=== PATIENT | female | born 1990 | race Caucasian/White ===

== ENCOUNTER 2022-12-23 00:59 | Inpatient (IN) | payer BC ==
[~2022-12-23 00:59] MED LIST: Lactated Ringers 1,000 ML IV SCH; Sodium Chloride 0.9% 10 ML Syringe FLUSH PRN; Sodium Chloride 0.9% 10 ML Syringe FLUSH SCH
[2022-12-23] MEDS ORDERED: Oxytocin/Lactated Ringers 10 UNIT/1,000 ML BAG IV SCH (05:00)
[2022-12-23] MEDS ORDERED: ceFAZolin 2 GM in Sodium Chloride 0.9% 50 ML IV PRN (05:00)
[2022-12-23] MEDS ORDERED: Citric Acid/Sodium Citrate Solution 30 ML Cup PO ONE (05:37)
[2022-12-23] MEDS ORDERED: Metoclopramide 10 MG/2 ML SDV IVPUSH ONE (05:37)
[2022-12-23] MEDS ORDERED: Lactated Ringers 1,000 ML IV SCH (05:45)
[2022-12-23] MEDS: Lactated Ringers 1,000 ML IV SCH ×2 (05:57→06:54)
[2022-12-23 05:58] LABS: BASOPHILS ABSOLUTE AUTO 0.04 K/mm3 (0.01-0.08); BASOPHILS PERCENT AUTO 0.4 % (0.1-1.2); EOSINOPHILS ABSOLUTE AUTO 0.05 K/mm3 (0.04-0.36); EOSINOPHILS PERCENT AUTO 0.5 (0.7-5.8); HEMATOCRIT 37.3 % (34.1-44.9); HEMOGLOBIN 12.9 gm/dl (11.2-15.7); IMMATURE GRAN ABSOLUTE AUTO 0.16 K/mm3 (0.00-0.10); IMMATURE GRAN PERCENT AUTO 1.6 % (<=1.0); LYMPHOCYTES ABSOLUTE AUTO 3.57 K/mm3 (1.18-3.74); LYMPHOCYTES PERCENT AUTO 36.5 % (19.3-51.7); MEAN CORPUSCULAR HEMOGLOBIN 32.8 pg (25.6-32.2); MEAN CORPUSCULAR HGB CONC 34.6 g/dl (32.2-35.5); MEAN CORPUSCULAR VOLUME 94.9 fl (79.4-94.8); MONOCYTES ABSOLUTE AUTO 0.55 K/mm3 (0.24-0.36); MONOCYTES PERCENT AUTO 5.6 % (4.7-12.5); NEUTROPHILS ABSOLUTE AUTO 5.41 K/mm3 (1.56-6.13); NEUTROPHILS PERCENT AUTO 55.4 % (34.0-71.1); PLATELET COUNT,PLT 186 K/mm3 (182-369); RED BLOOD CELL COUNT 3.93 M/mm3 (3.98-5.22); WHITE BLOOD CELL COUNT,WBC 9.78 K/mm3 (3.98-10.04)
[2022-12-23] MEDS ORDERED: Oxytocin 10 Units/1 ML SDV ONE ×2 (06:31→08:44)
[2022-12-23] MEDS ORDERED: Ketorolac 30 MG/ML SDV ONE (06:31)
[2022-12-23] MEDS ORDERED: Ondansetron 4 MG/2 ML SDV ONE (06:31)
[2022-12-23] MEDS ORDERED: Morphine PF 1 MG/ML Amp ONE (06:32)
[2022-12-23] MEDS ORDERED: Meperidine 50 MG/ML Vial IVPUSH PRN (06:45)
[2022-12-23] MEDS ORDERED: Ondansetron 4 MG/2 ML SDV IVPUSH PRN ×2 (06:45→16:12)
[2022-12-23] MEDS ORDERED: fentaNYL 100 MCG/2 ML SDV IVPUSH PRN (06:45)
[2022-12-23] MEDS ORDERED: diphenhydrAMINE 50 MG/ML SDV IVPUSH PRN ×2 (06:45→10:26)
[2022-12-23] MEDS ORDERED: Phenylephrine 1% 10 MG/ML SDV ONE (07:16)
[2022-12-23] MEDS ORDERED: ceFAZolin 2 GM Vial ONE (07:16)
[2022-12-23] MEDS ORDERED: Dextrose 5%-Lactated Ringers 1,000 ML IV SCH (10:26)
[2022-12-23] MEDS ORDERED: ePHEDrine 50 MG/ML SDV IVPUSH PRN (10:26)
[2022-12-23] MEDS ORDERED: Naloxone 0.4 MG/ML SDV IVPUSH PRN (10:26)
[2022-12-23] MEDS ORDERED: Acetaminophen/oxyCODONE 325-5 MG Tab PO PRN ×2 (10:26)
[2022-12-23 11:46] LABS: HEMOGLOBIN 12.5 gm/dl (11.2-15.7); MEAN CORPUSCULAR HEMOGLOBIN 32.5 pg (25.6-32.2); MEAN CORPUSCULAR HGB CONC 33.8 g/dl (32.2-35.5); MEAN CORPUSCULAR VOLUME 96.1 fl (79.4-94.8); MEAN PLATELET VOLUME 11.9 fl (9.4-12.3); PLATELET COUNT,PLT 160 K/mm3 (182-369); RED BLOOD CELL COUNT 3.85 M/mm3 (3.98-5.22); WHITE BLOOD CELL COUNT,WBC 14.82 K/mm3 (3.98-10.04)
[2022-12-23] MEDS: Ketorolac 30 MG/ML SDV IVPUSH SCH ×2 (15:39→20:44)
[2022-12-23] MEDS ORDERED: Promethazine 25 MG Tab PO PRN (16:06)
[2022-12-23] MEDS ORDERED: Lactated Ringers 500 ML IV ONE (16:07)
[2022-12-23] MEDS ORDERED: Promethazine 12.5 MG Supp RECTAL PRN (16:54)
[2022-12-24] MEDS: Ketorolac 30 MG/ML SDV IVPUSH SCH (02:22)
[2022-12-24 06:08] LABS: HEMATOCRIT 30.7 % (34.1-44.9); MEAN CORPUSCULAR HEMOGLOBIN 32.8 pg (25.6-32.2); MEAN CORPUSCULAR HGB CONC 33.2 g/dl (32.2-35.5); MEAN CORPUSCULAR VOLUME 98.7 fl (79.4-94.8); MEAN PLATELET VOLUME 11.3 fl (9.4-12.3); PLATELET COUNT,PLT 140 K/mm3 (182-369); RED BLOOD CELL COUNT 3.11 M/mm3 (3.98-5.22); WHITE BLOOD CELL COUNT,WBC 10.87 K/mm3 (3.98-10.04)
[2022-12-24 06:16] LABS: HEMOGLOBIN 10.2 gm/dl (11.2-15.7)
[2022-12-24] MEDS: Ibuprofen 600 MG Tab PO PRN ×3 (08:22→20:40)
== END 2022-12-25 10:07 | disposition home or self-care (01) | DRG 540 ==
LOC: JD.OB 05:30
PROVIDERS: ADMIT Obstetrics & Gynecology; ATTEND Obstetrics & Gynecology
PROC: 10D00Z1 Extraction of Products of Conception, Low, Open Approach (ICD-10-PCS; principal; 2022-12-23)
DX: O48.0 Post-term pregnancy (principal); O34.211 Maternal care for low transverse scar from previous cesarean delivery; Z3A.40 40 weeks gestation of pregnancy; O99.214 Obesity complicating childbirth; Z37.0 Single live birth; Z79.899 Other long term (current) drug therapy
CPT/HCPCS: 01961; 36415; 59025; 82947; 85025; 85027; 85461; 86850; 86900; 86901; 94762; A9270-GY; J0690; J1885; J2274; J2370; J2405; J2590; J2765; J2790; J7120; J7121